=== PATIENT | male | born 1995 | race Caucasian/White ===

== ENCOUNTER 2021-07-06 08:52 | Emergency (ER) | payer OTHER ==
[~2021-07-06 08:52] MED LIST: BACTRIM DS TAB1 EACH PO; FLEXERIL10 MG PO; NAPROXEN500 MG PO
[2021-07-06 09:53] LABS: CORONAVIRUS 2019 SARS-COV-2 NEGATIVE (NEGATIVE); INFLUENZA A NAA NEGATIVE (NEGATIVE)
[2021-07-06] MEDS ORDERED: FIORICET1 EACH PO (10:29)
[2021-07-06] MEDS ORDERED: MUCINEX D ER 61 EACH PO (10:29)
[2021-07-06] MEDS ORDERED: AMOXICILLIN875 MG PO (10:29)
== END 2021-07-06 10:35 | disposition home or self-care (01) ==
LOC: FER 08:52
PROVIDERS: Emergency Medicine
DX: G44.209 Tension-type headache, unspecified, not intractable (principal); J01.00 Acute maxillary sinusitis, unspecified; F17.290 Nicotine dependence, other tobacco product, uncomplicated; Z20.822 Contact with and (suspected) exposure to COVID-19
CPT/HCPCS: 99283; U0002